=== PATIENT | male | born 1985 | race Caucasian/White ===

== ENCOUNTER 2019-12-26 18:45 | Emergency (ER) | payer OTHER ==
[~2019-12-26] VITALS: Ht 170.2 cm; Wt 59.0 kg
[2019-12-26 19:00] VITALS: Ht 170.2 cm; Wt 59.0 kg
[2019-12-26 21:31] VITALS: BP 103/71
== END 2019-12-26 21:31 | disposition home or self-care (01) ==
LOC: ED 18:45
DX: R11.0 Nausea (principal); R51 Headache; R42 Dizziness and giddiness; F17.200 Nicotine dependence, unspecified, uncomplicated
CPT/HCPCS: J2405; J7030

== ENCOUNTER 2020-03-18 02:09 | Emergency (ER) | payer OTHER ==
[~2020-03-18] VITALS: Ht 167.6 cm; Wt 57.6 kg
[2020-03-18 02:20] VITALS: Ht 167.6 cm; Wt 57.6 kg
[2020-03-18 03:59] LABS: BASOPHIL % 0.5 % (0-2); PLATELET COUNT 265 x10^3mcL (130-400); RED CELL DISTRIBUTION WIDTH 13.2 % (11.5-14.5)
[2020-03-18 04:41] LABS: CALCIUM 9.5 mg/dL (8.5-10.1); CARBON DIOXIDE 27.2 mmol/L (21-32); CHLORIDE SERUM 101 mmol/L (98-107); CREATININE SERUM 0.9 mg/dL (0.7-1.3); GFR1 > 60 mL/min; GLUCOSE SERUM 117 mg/dL (74-106); POTASSIUM SERUM 3.6 mmol/L (3.5-5.1); SODIUM SERUM 139 mmol/L (136-145)
[2020-03-18 04:46] LABS: ALBUMIN 4.4 g/dL (3.4-5.0); ALKALINE PHOSPHATASE 70 U/L (46-116); ALT/SGPT 32 U/L (16-63); AST/SGOT 21 U/L (15-37); BILIRUBIN TOTAL 0.99 mg/dL (0.20-1.00); TOTAL PROTEIN, SERUM 7.6 g/dL (6.4-8.2)
[2020-03-18 07:32] VITALS: BP 113/69
== END 2020-03-18 07:32 | disposition home or self-care (01) ==
LOC: ED 02:09
DX: R07.89 Other chest pain (principal)
CPT/HCPCS: 85378; J1885; Q0092